=== PATIENT | female | born 1970 | race Hispanic/Latino ===

== ENCOUNTER 2024-04-13 07:58 | Emergency (ER) | payer SELFPAY ==
[~2024-04-13] VITALS: Ht 157.5 cm; Wt 77.1 kg
[2024-04-13 08:05] VITALS: PULSE 83; RESP 19; TEMP 97.8; O2SAT 100
[2024-04-13] MEDS ORDERED: CYCLOBENZAPRINE10 MG PO (08:43)
[2024-04-13] MEDS: ACETAMINOPHEN 325 MG TAB PO ONE (08:43)
[2024-04-13] MEDS ORDERED: KETOROLAC TROME10 MG PO (08:43)
== END 2024-04-13 08:51 | disposition home or self-care (01) ==
LOC: ER 08:05
DX: S40.011A Contusion of right shoulder, initial encounter (principal); S20.214A Contusion of middle front wall of thorax, initial encounter; W22.09XA Striking against other stationary object, initial encounter; Y92.89 Other specified places as the place of occurrence of the external cause
CPT/HCPCS: 71046; 99283